=== PATIENT | female | born 1955 | race Caucasian/White ===

== ENCOUNTER → 2017-08-31 | Outpatient (CLI) | payer BC ==
[~2017-08-31] MED LIST: BUDESUS; CETI5TAB5 PO; CLON0.5T3 PO; FRC PO; TRAM-10 PO
--- NOTE | 2017-08-31 15:47 | MAMMOGRAPHY REPORT ---
BILATERAL DIGITAL SCREENING MAMMOGRAM TOMOSYNTHESIS WITH CAD: 08/31/2017 CLINICAL HISTORY: Routine screening. Patient has no complaints. TECHNIQUE: Breast tomosynthesis in addition to standard 2D mammography was performed. Current study was also evaluated with a Computer Aided Detection (CAD) system. COMPARISON: Comparison is made to exams dated: 08/30/2016 mammogram, 08/27/2015 mammogram, 08/26/2014 mammogram, 08/23/2013 mammogram, 08/22/2012 mammogram, and 08/20/2011 mammogram - [facility]. BREAST COMPOSITION: The tissue of both breasts is almost entirely fatty. FINDINGS: No suspicious masses, calcifications, or areas of architectural distortion are noted in ei ther breast. There has been no significant interval change compared to prior exams. IMPRESSION: ACR BI-RADS CATEGORY 1: NEGATIVE There is no mammographic evidence of malignancy. A 1 year screening mammogram is recommended. The pa tient will receive written notification of the results. Approximately 10% of breast cancers are not detected with mammography. A negative mammographic report should not delay biopsy if a clinically suggestive mass is present. Mindy Landis M.D. ah/:08/31/2017 13:40:04 Geotechnical Field Technician: Juanita ROJAS)(M), [facility] letter sent: Normal 1/2 BI-RADS Code: ACR BI-RADS Category 1: Negative
== END | disposition home or self-care (01) ==
LOC: C.MAMM 10:29
PROVIDERS: ATTEND Obstetrics & Gynecology
DX: Z12.31 Encounter for screening mammogram for malignant neoplasm of breast (principal)

== ENCOUNTER 2023-07-18 08:37 | Observation (INO) ==
--- NOTE | 2023-06-23 19:47 | PAT Medication Instructions ---
Medication Instructions Date of Service June 23, 2023 Home Medications Medication Instructions Recorded dupilumab 300 mg/2 mL subcutaneous 300 mg (2 mL) subcut .every 2 03/07/23 syringe (Dupixent) weeks #4 mL ibuprofen 600 mg tablet 600 mg PO TID PRN pain #90 tabs 04/26/23 zfflsfmtrg-zpvkmtzbnanll-qezrefbj 2 tab PO TID PRN pain #180 tabs 05/04/23 50 mg-325 mg-40 mg tablet tramadol 50 mg tablet 100 mg PO Q8H PRN pain #540 tabs 05/04/23 zolpidem 12.5 mg tablet,extended 12.5 mg PO HS #90 tabs 05/04/23 release,multiphase (Ambien CR) Wheeled Walker #1 ea 06/23/23 cetirizine 10 mg tablet 10 mg PO QAM cholecalciferol (vitamin D3) 50 mcg (2,000 unit) capsule 50 mcg PO QPM coenzyme Q10 200 mg capsule (Co Q-10) 200 mg PO QPM resveratrol 100 mg capsule 800 mg PO QPM budesonide compund 1 dose intranasal QAM dupilumab 300 mg/2 mL subcutaneous syringe (Dupixent) 300 mg (2 mL) subcut .every 2 weeks ibuprofen 600 mg tablet 600 mg PO TID PRN pain zwhrmmceia-oxeynjaqpgxar-umtmasvp 50 mg-325 mg-40 mg tablet 2 tab PO TID PRN pain tramadol 50 mg tablet 100 mg PO Q8H PRN pain zolpidem 12.5 mg tablet,extended release,multiphase (Ambien CR) 12.5 mg PO HS atorvastatin 10 mg tablet 10 mg PO QPM levothyroxine 75 mcg tablet 75 mcg PO QAM metformin 500 mg tablet 500 mg PO QPM nadolol 40 mg tablet 40 mg PO QPM ASK your surgeon for instructions ibuprofen 600 mg tablet 600 mg PO TID PRN pain ASK your prescriber and surgeon dupilumab 300 mg/2 mL subcutaneous syringe (Dupixent) 300 mg (2 mL) subcut .every 2 weeks STOP taking 2 weeks before surgery coenzyme Q10 200 mg capsule (Co Q-10) 200 mg PO QPM resveratrol 100 mg capsule 800 mg PO QPM DO NOT take the morning of surgery cetirizine 10 mg tablet 10 mg PO QAM chbdmxiopl-vqjzebgixvaah-dfykbhyz 50 mg-325 mg-40 mg tablet 2 tab PO TID PRN jacobo n Take morning of surgery With a small sip of water, OTHERWISE NOTHING TO EAT OR DRINK AFTER MIDNIGHT: budesonide compund 1 dose intranasal QAM tramadol 50 mg tablet 100 mg PO Q8H PRN pain (if needed) levothyroxine 75 mcg tablet 75 mcg PO QAM Take evening before surgery cholecalciferol (vitamin D3) 50 mcg (2,000 unit) capsule 50 mcg PO QPM dccqizofzz-kpybhjzzfifnz-juvhvslc 50 mg-325 mg-40 mg tablet 2 tab PO TID PRN pain (if needed) tramadol 50 mg tablet 100 mg PO Q8H PRN pain (if needed) zolpidem 12.5 mg tablet,extended release,multiphase (Ambien CR) 12.5 mg PO HS atorvastatin 10 mg tablet 10 mg PO QPM metformin 500 mg tablet 500 mg PO QPM nadolol 40 mg tablet 40 mg PO QPM Other Notes If you have any questions please call us at [phone] or [phone] or [phone] or [phone]
--- NOTE | 2023-06-27 09:37 | Anesthesiology Consultation ---
Date of Service June 27, 2023 Assessment & Plan (1) Encounter for pre-operative examination: - Check BSG AM DOS - COVID screening: Per assessment on 06/27: No known COVID-19 positive contacts or current COVID-19 related symptoms. No recent Covid positive test result. - Outpatient joint assessment: Pt currently scheduled for inpatient pathway. If surgeon requests review for outpatient joint pathway, patient is an acceptable candidate for outpatient joint program from anesthesia standpoint pending surgeon's office assessment that patient is motivated, has good support and completes [facility] Program preop requirements. - PONV: Hx severe PONV requiring return to ER for IV management after discharged home. Subsequently had surgery/anesthesia with pre-treatment including scope patch. Will order scope patch for DOS. - Anesthesia concern: Per patient, had awareness/pain towards end of colonoscopy. Concerned with similar issues for upcoming Left TKA. Requests deeper sedation perioperatively if possible* Chart Review Chart Review: Acceptable Risk for Surgery and Patient seen in Pre Admission Testing Teaching & Discussion Pre-Anesthesia Teaching/Discussion Notes: Instructed NPO after midnight before surgery,except medications with 15 cc of water. Medication instructions provided according to the PAT guidelines. History Surgery Operation Date: 07/18/23 08:50 Proposed Procedures p Left Total Knee Arthroplasty - Isiah Mccoy MD Height/Weight Height: 5 ft 4 in Weight: 76.9 kg Allergies Allergy/AdvReac Type Severity Reaction Status Date / Time Sulfa (Sulfonamide Allergy Intermediate Rash, Verified 06/24/23 09:29 Antibiotics) swelling, hives sulfamethoxazole Allergy Rash, Verified 06/27/23 09:56 [From Bactrim] swelling, hives trimethoprim [From Bactrim] Allergy Rash, Verified 06/27/23 09:56 swelling, hives Medications Home Medications Medication Instructions Recorded Confirmed Last Taken cetirizine 10 mg tablet 10 mg PO QAM #30 tabs 11/02/22 06/23/23 Unknown cholecalciferol (vitamin D3) 50 50 mcg PO QPM 11/02/22 06/23/23 Unknown mcg (2,000 unit) capsule coenzyme Q10 200 mg capsule (Co 200 mg PO QPM 11/02/22 06/23/23 Unknown Q-10) resveratrol 100 mg capsule 800 mg PO QPM 11/02/22 06/23/23 Unknown budesonide compund 1 dose intranasal QAM 03/03/23 06/23/23 Unknown dupilumab 300 mg/2 mL subcutaneous 300 mg (2 mL) subcut .every 2 03/07/23 06/23/23 Unknown syringe (Dupixent) weeks #4 mL ibuprofen 600 mg tablet 600 mg PO TID PRN pain #90 tabs 04/26/23 06/23/23 Unknown bclajlhtyr-uwnkfuqrkqeyk-txhpbmnk 2 tab PO TID PRN pain #180 tabs 05/04/23 06/23/23 Unknown 50 mg-325 mg-40 mg tablet tramadol 50 mg tablet 100 mg PO Q8H PRN pain #540 tabs 05/04/23 06/23/23 Unknown zolpidem 12.5 mg tablet,extended 12.5 mg PO HS #90 tabs 05/04/23 06/23/23 Unknown release,multiphase (Arnel CAMARENA) Wheeled Walker #1 ea 06/23/23 06/23/23 Unknown atorvastatin 10 mg tablet 10 mg PO QPM 06/23/23 06/23/23 Unknown levothyroxine 75 mcg tablet 75 mcg PO QAM 06/23/23 06/23/23 Unknown metformin 500 mg tablet 500 mg PO QPM 06/23/23 06/23/23 Unknown nadolol 40 mg tablet 40 mg PO QPM 06/23/23 06/23/23 Unknown Past Medical History Medical History Asthma Chronic rhinitis Chronic rhinosinusitis with nasal polyposis Follows with [facility] allergy Chronic sinusitis Degenerative arthritis of knee, bilateral Depression with anxiety GERD (gastroesophageal reflux disease) diet controlled History of migraine Hypercholesterolemia Hypothyroidism Impaired fasting glucose Nasal septal deviation Osteoarthritis Exercise / Class Metabolic Activity II 4-5 Yardwork/Stairs/Walk up hill (one FS (no CP, no SOB)) Past Family History Family History Grandmother (Maternal) Migraine Mother Migraine Myocardial infarction Heart disease Diabetes Hypertension Kidney disease Father Diabetes Heart disease Hypertension Myocardial infarction Arthritis Aunt Breast cancer Denies family history of Ovarian cancer Colorectal cancer Past Surgical History Surgical History H/O nasal polypectomy History of bilateral inguinal hernia repair History of colonoscopy History of tonsillectomy PONV (postoperative nausea and vomiting) Status post hysteroscopy with polypectomy Past Anesthesia History No Family Hx of Anesthesia Complications and Other (Awareness/pain towards end of colonoscopy) History of PONV No Hx of Motion Sickness and History of PONV (with sinus surgery- needed to return to ER for IV medical management, subsequently had pretreatment including scope patch with no PONV) Social History Smoking Status: Never smoker Do You Dip or Chew Tobacco: No Hx Alcohol Use: No Hx Substance Use: No substance use type: does not use Review of Systems Patient denies chest pain, shortness of breath, dyspnea on exertion, fever, chills, cough, wheezing, palpitations. Physical Exam Vital Signs VITALS BP 125/85 P 70 TEMP 98.1 SP02 98%RA RESP 16 PHYSICAL Full cervical extension range of motion. Full TMJ range of motion. TMD 3 finger breaths Mallampati Score 1 Dentition: intact, + crown (side) Lungs: clear throughout to auscultation Cardiac: regular rate and rhythm, no murmurs noted Spine: normal Carotid arteries: negative bruit Extremities: no LE edema Lab Results Anesthesia Preop Results Results Anesthesia Widget: WBC 5.33 K/ul (4.8-10.8) 06/27/23 Hgb 14.6 g/dl (12.0-16.0) 06/27/23 Hct 41.2 % (37.0-47.0) 06/27/23 Plt 298 K/uL (130-400) 06/27/23 Na 136 mmol/L (136-145) 06/27/23 K 4.2 mmol/L (3.5-5.1) 06/27/23 Cl 102 mmol/L (98-107) 06/27/23 CO2 29 mmol/L (21-32) 06/27/23 BUN 10 mg/dl (6-23) 06/27/23 Creat 0.69 mg/dl (0.6-1.2) 06/27/23 Glucose Level 90 mg/dl (70-99(Fasting)) 06/27/23 PT 10.7 Seconds (9.0-12.0) 06/27/23 PTT 28.6 Seconds (21.0-31.0) 06/27/23 INR 1.0 (0.9-1.1) 06/27/23 HA1c 5.5 % (4.5-5.6) 06/27/23 Blood Type O Negative 06/27/23 Antibody Screen NEGATIVE 06/27/23 Testing Electrocardiogram Date: 06/27/23 NSR at 68bpm. NS TWA. Chest X-Ray Date: 06/27/23 FINDINGS: PA and lateral chest radiographs are compared to study dated 04/21/2011. The cardiomediastinal silhouette is unremarkable. The lungs and pleural spaces are clear. There is no pneumothorax. The bony thorax appears intact. IMPRESSION: No active disease in the chest.
[~2023-07-18 08:37] MED LIST changes: +ACETAMINOPHEN 500 MG TAB PO SCH; -BUDESUS; +BUPIVACAINE 0.5 % 5 MG/1 ML PF 10ML VIAL ONE; +BUPIVACAINE LIPOSOME/PF 266 MG, BUPIVACAINE/EPINEPHRINE 50 ML, SODIUM CHLORIDE 0.9% PF ... INFIL SCH; -CETI5TAB5 PO; -CLON0.5T3 PO; +CeleBREX 200 MG CAP PO SCH; +EPINEPHrine INJ 1 MG/ML AMP ONE; +FAMOTIDINE 20 MG TAB PO SCH; -FRC PO; +LR 500ML BOLUS, THEN 15ML/HR IV SCH; +LR 60ML/HR IV SCH; +METOCLOPRAMIDE HCL 10 MG TABLET PO SCH; +ROPIVACAINE 0.5% 5 MG/ML 30 ML VIAL ONE; +Scopolamine 1 MG TDSY TD SCH; -TRAM-10 PO; +TRANEXAMIC ACID 1,000 MG **IV Intra-op IV SCH; +ceFAZolin 2000MG 2,000 MG/15 ML SYR IV SCH; +dexAMETHasone**PF** 10 MG/ML VIAL IV SCH
[2023-07-18] MEDS ORDERED: MIDAZOLAM HCL 1 MG/ML 2ML VIAL ONE (09:04)
[2023-07-18] MEDS ORDERED: PROPOFOL IV EMULSION 10 MG/ML 20 ML VIAL IV ONE (09:04)
[2023-07-18] MEDS ORDERED: fentaNYL citrate PF 100 MCG/2 ML VIAL ONE (09:04)
[2023-07-18] MEDS ORDERED: BUPIVACAINE/EPINEPHRINE 0.25% 1:200,000 30 ML VIAL ONE (10:36)
[2023-07-18] MEDS ORDERED: BUPIVACAINE LIPOSOME 1.3% 266 MG/20 ML VIAL ONE (10:37)
[2023-07-18] MEDS ORDERED: SODIUM CHLORIDE 0.9% PF 50 ML VIAL ONE (10:37)
--- NOTE | 2023-07-18 10:45 | History & Physical Bridge Note ---
Date of Service July 18, 2023 History & Physical Bridge Note I have examined the patient, reviewed the History & Physical and in the interval since the performance of the History & Physical I have noted the following changes of clinical significance: no changes noted
[2023-07-18] MEDS ORDERED: ONDANSETRON INJ 2 MG/ML 2 ML VIAL ONE (11:04)
[2023-07-18] MEDS ORDERED: ePHEDrine sulfate 50 MG/ML AMP IV PRN (11:09)
[2023-07-18] MEDS ORDERED: ATROPINE SULFATE 0.1 MG/ML 10ML SYR IV PRN (11:09)
--- NOTE | 2023-07-18 12:36 | Operative Report ---
PG Post Operative Report Pre & Post Diagnosis Operation Date: 07/18/23 10:20 Pre-Op Diagnosis: Left Knee Degenerative Joint Disease Post-Op Diagnosis: Left Knee Degenerative Joint Disease I identified the patient and participated in the time-out.: Yes Procedure Operation Date: 07/18/23 10:20 Actual Procedures p Left Total Knee Arthroplasty(Left) - Isiah Mccoy MD Surgeon Isiah Mccoy MD Technology Advisor Xu Henson PA-C Estimated Blood Loss 50 Findings Consistent with Post-Op Diagnosis Operative findings were advanced left knee tricompartment DJD. She had extensive grade 4 xvzl-du-fatp disease and eburnation of the anteromedial compartment. Less severe but diffuse grade 4 changes in the patellofemoral and focal changes in the lateral compartment. Moderate-sized joint effusion. Specimens Left knee sent for pathology Drains None Anesthesia Type Spinal MAC Disposition Accompanied Patient To Recovery: No Indications Patient is a 68-year-old female is had a several year history of increasing left knee pain discomfort describes gotten worse over time. She failed conservative measures. X-rays show advanced left knee arthritis. She elected proceed with total knee arthroplasty. Description of Procedure Operative implants consist of: 1. Biomet Vanguard size 62.5 left posterior stabilized femoral component. 2. Biomet size 67 tibial tray. 3. 12 mm posterior stabilized polyethylene insert. 4. 25 x 8 all poly patella. The patient was taken the operating, identified, and placed on the operating table supine position but all contractors were appropriately padded. IV antibiotics tried by anesthesia team. A spinal anesthetic and abductor canal block had provided in the holding area. A Avina catheter was placed in sterile fashion. A left thigh tent was then placed in the left lower extremities and prepped and draped in usual sterile fashion. The left leg was elevated exsanguinated with use of an Esmarch and the tourniquet was placed at 300 mmHg. An anterior approach left knee was then performed to longitudinal incision centered over the patella. Sharp dissection was carried through subcutaneous tissue down the extensor mechanism. A medial parapatellar arthrotomy was then performed. Some subperiosteal dissection was carried out medially. The fat pad was resected from Neath patella tendon. Late ral patellofemoral ligament was released. Patella subluxated laterally and the knee was flexed. The osteophytes taken on distal femur. The ACL and PCL were then released from distal femur and the tibia subluxated anteriorly. The external tibial alignment jig was then placed in the interface the tibia and adjusted 14 mm medially. Proximal tibial cut was made remove about 2 mm of bone from most deficient aspect medial tibial plateau. Tibia was then sized to a size 67. Attention drawn the femur. The distal femur was entered with a sharp drill. Intramedullary canal was suction. A left 5 degree valgus cutting guide was placed. The distal femoral cutting block was pinned in place. Distal femoral cut was made to take an additional 3 mm of bone off distal femur. The femur was then sized to a size 62.5. The AP cutting block was pinned parallel to the epicondylar axis which was 5 degrees of external rotation. The anterior cut, anterior chamfer, posterior cut, posterior chamfer cuts were made. The box cutting guide was placed in just slight lateral and the box cut was made. The knee was flexed. The remnants of the medial and lateral menisci were excised the osteophytes taken off the posterior aspect of femur. A trial femoral component was placed. The tibial tray was pinned in maximum external rotation and the drill and stem punch were used to create defect in proximal tibia for the tibial tray. The knee was then trialed and the 12 mm insert fit most appropriately. Attention drawn the patella. The patella was cleaned of all soft tissues. Patella thickness measured 18 mm in thickness and was cut down to 12. Was sized to a size 25 patella. The lug holes were drilled for the 25 patella. The lateral osteophyte was removed. Patella button was placed. Knee was taken through range of motion and the patella tracked nicely with no thumbs test. Attention drawn to placing the permanent components. All trial components were removed. Bone plug was placed in the distal femur limit blood loss. A double batch Palacos G cement was mixed. Biomet Vanguard size 62.5 left posterior stabilized femoral component, size 67 tibial tray, a 12 mm posterior stabilized polyethylene insert, and a 25 x 8 all Paller patella then cemented in place. Knee was brought out into full extension till cement hardened. Final cement check was then performed. Pericapsular tissues were injected with a total of 100 cc of combination of 20 cc of Exparel, 30 cc normal saline, 50 cc of quarter percent Marcaine with epinephrine. Patient did receive 1 g tranexamic acid. The tourniquet was then let down for final tourniquet time 52 minutes. Hemostasis assured use electrocautery. Extensor mechanism then closed with combination 1 PDS suture #1 Vicryl suture in a jfjsvr-gl-bdqrl fashion. Extensor mechanism checked found to be intact and the subcutaneous tissue then closed with 2 Dexon suture in a buried interrupted fashion skin was closed with skin ted. Leg was then cleaned and dried and sterile dressing applied Xeroform, 4 fours, sterile cast padding, Nate bandage were applied. Patient then transferred to the recovery room in stable condition. Patient tolerated procedure well and there were no complications. Xu Henson, my physician property management assistant, was present for the entire procedure. His assistance was essential and required for appropriate patient positioning, prepping and draping, surgical exposure, performing the technical details of the operation, placement the implants, closure of the wound, and placement of the sterile bandage. I attest to the content of the Intraoperative Record and any orders documented therein. Any exceptions are noted below.
[2023-07-18] MEDS ORDERED: GLUCAGON FOR INJ 1 MG VIAL SQ PRN (12:37)
[2023-07-18] MEDS ORDERED: CARBOHYDRATES FOR HYPOGLYCEMIA PO PRN (12:37)
[2023-07-18] MEDS ORDERED: DEXTROSE 50% 50 ML SYRINGE IV PRN (12:37)
[2023-07-18] MEDS ORDERED: GLUCOSE 10 TAB/TUBE PO PRN (12:37)
[2023-07-18] MEDS ORDERED: GLUCOSE 40% GEL 15 GM TUBE PO PRN (12:37)
--- NOTE | 2023-07-18 13:09 | Anesthesiology Progress Note ---
Date of Service July 18, 2023 Anesthesia Post Procedure Vital Signs Vital Signs: Temp Pulse Pulse Resp BP Pulse Ox O2 Del Method 07/18/23 13:00 36.5 C 85 17 127/82 96 Room Air 07/18/23 12:50 77 16 119/70 98 Room Air 07/18/23 12:40 79 19 121/76 96 Room Air 07/18/23 12:31 36.5 C 79 14 126/77 95 Room Air 07/18/23 09:04 36.8 C 70 20 164/91 H 95 Room Air Pain Intensity Left Knee: Pain Intensity: 6 Transfer of Care Handoff Completed per policy Notes Mental Status: alert / awake / arousable Patient Amnestic to Procedure: Yes Nausea / Vomiting: adequately controlled Pain: adequately controlled Airway Patency, RR, SpO2: stable & adequate BP & HR: stable & adequate Hydration State: stable & adequate Neuraxial Anesthesia: was administered and sensory block is resolving Anesthetic Complications: no major complications apparent
--- NOTE | 2023-07-18 13:19 | XRay Report ---
XR knee LT 1 or 2V routine CLINICAL HISTORY: Surgical Post Op TECHNIQUE: 2 views of the left knee were obtained. Comparison: Comparison is made to knee radiographs 02/08/2013 FINDINGS: Patient is status post total knee arthroplasty with expected postsurgical changes including soft tiss ue swelling and subcutaneous emphysema. No periarticular lucency or hardware fracture is seen. IMPRESSION: Expected postoperative appearance status post placement of total knee arthroplasty. ACT 112: Negative or not required by law. Electronically signed by: Avery Chau M.D. 07/18/2023 1:18 PM
[2023-07-18] MEDS ORDERED: METOCLOPRAMIDE HCL INJ 5 MG/ML 2 ML VIAL IV PRN (14:12)
[2023-07-18] MEDS ORDERED: ALUMINUM/MAGNESIUM SUSP 30 ML UDC PO PRN (14:12)
[2023-07-18] MEDS ORDERED: DUPILUMAB 300 MG/2 ML SQ SCH (14:12)
[2023-07-18] MEDS ORDERED: MAGNESIUM HYDROXIDE SUSP 30 ML UDC PO PRN (14:12)
[2023-07-18] MEDS ORDERED: NALOXONE HCL 0.4 MG/1 ML VIAL/CARP IV PRN (14:12)
[2023-07-18] MEDS ORDERED: BUTALBITAL/ACETAMIN/CAFFEINE TAB PO PRN (14:12)
[2023-07-18] MEDS ORDERED: ONDANSETRON INJ 2 MG/ML 2 ML VIAL IV PRN (14:12)
[2023-07-18] MEDS ORDERED: bisacodyL 10 MG SUPP PR PRN (14:12)
[2023-07-18] MEDS ORDERED: HYDROmorphone INJ 0.5 MG/0.5 ML SYR IV PRN (14:12)
[2023-07-18] MEDS: SODIUM CHLORIDE 0.9% 1000ML 1,000 ML IV SCH (14:36)
[2023-07-18] MEDS: ACETAMINOPHEN 500 MG TAB PO SCH ×2 (14:36→20:02)
[2023-07-18] MEDS: oxyCODONE HCL IR 5 MG TAB (IMMEDIATE RELEASE) PO PRN ×2 (16:12→22:11)
[2023-07-18] MEDS: Scopolamine CHECK PATCH PLACEMENT SCH ×2 (16:14→22:12)
[2023-07-18] MEDS: ceFAZolin 1000MG 1,000 MG/7.5 ML SYR IV SCH (18:12)
[2023-07-18] MEDS ORDERED: TRANEXAMIC ACID / 0.7% NACL 1,000 MG/100 ML BAG IV SCH (18:30)
[2023-07-18] MEDS: ASPIRIN 81 MG ECTAB PO SCH (20:02)
[2023-07-18] MEDS: DOCUSATE SODIUM 100 MG CAP PO SCH (20:03)
[2023-07-18] MEDS: KETOROLAC TROMETHAMINE 15 MG/ML VIAL IV SCH (20:04)
[2023-07-18] MEDS ORDERED: ATORVASTATIN 10 MG TAB PO SCH (21:00)
[2023-07-18] MEDS ORDERED: ZOLPIDEM TARTRATE 10 MG TAB PO SCH (21:00)
[2023-07-18] MEDS ORDERED: nadoloL 40 MG TAB PO SCH (21:00)
[2023-07-18] MEDS ORDERED: CHOLECALCIFEROL 1,000 UNITS 25 MCG TAB PO SCH (21:00)
[2023-07-18] MEDS ORDERED: SENNA 8.6 MG TAB PO SCH ×2 (21:00)
[2023-07-18] MEDS ORDERED: NON-FORMULARY MEDICATION (Coenzyme Q10 [Co Q-10] 200 mg capsule) PO SCH (21:00)
[2023-07-19] MEDS: SODIUM CHLORIDE 0.9% 1000ML 1,000 ML IV SCH (02:35)
[2023-07-19] MEDS: ceFAZolin 1000MG 1,000 MG/7.5 ML SYR IV SCH (03:12)
[2023-07-19] MEDS: KETOROLAC TROMETHAMINE 15 MG/ML VIAL IV SCH ×2 (03:12→08:09)
[2023-07-19] MEDS: oxyCODONE HCL IR 5 MG TAB (IMMEDIATE RELEASE) PO PRN ×2 (06:35→12:41)
[2023-07-19 07:30] VITALS: BP 119/71; PULSE 74; TEMP 98.1; O2SAT 93
[2023-07-19] MEDS ORDERED: dexAMETHasone 10 MG in SYRINGE 0 ML IV SCH (08:00)
[2023-07-19] MEDS: ASPIRIN 81 MG ECTAB PO SCH (08:09)
[2023-07-19] MEDS: ACETAMINOPHEN 500 MG TAB PO SCH (08:09)
[2023-07-19] MEDS: DOCUSATE SODIUM 100 MG CAP PO SCH (08:09)
[2023-07-19] MEDS: Scopolamine CHECK PATCH PLACEMENT SCH (08:10)
[2023-07-19 08:26] LABS: Hematocrit (blood only) 33.6 % (37.0-47.0); Mean Corpuscular Hemoglobin 32.8 pg (25.0-34.0); Mean Corpuscular Hgb Conc 35.7 g/dL (32.0-36.0); Mean Corpuscular Volume 91.8 fL (80.0-100.0); Mean Platelet Volume 10.5 fL (9.4-12.4); Platelet Count 223 K/uL (130-400); RDW Coefficient of Variation 12.6 % (11.5-14.5); RDW Standard Deviation 42.2 fL (36.4-46.3); Red Blood Count 3.66 M/uL (4.20-5.40); White Blood Count 10.09 K/ul (4.8-10.8)
[2023-07-19 08:41] LABS: BUN Creatinine Ratio 13.3 (10-20); Calcium 8.7 mg/dl (8.6-10.3); Creatinine Clr Calc Pharmacy 91.6 ml/min; Est GFR (African American) 110.1 ml/min; Potassium 3.5 mmol/L (3.5-5.1)
[2023-07-19] MEDS ORDERED: MULTIVITAMIN TAB PO SCH (09:00)
[2023-07-19] MEDS ORDERED: CETIRIZINE HCL 10 MG TABLET PO SCH (09:00)
[2023-07-19] MEDS ORDERED: LEVOTHYROXINE SODIUM 75 MCG TABLET PO SCH (09:00)
[2023-07-19] MEDS ORDERED: [UNRECOGNIZED DRUG - OTHER] intranasal SCH (09:00)
--- NOTE | 2023-07-19 15:18 | Orthopedic Progress Note ---
Date of Service July 19, 2023 Assessment & Plan (1) Status post left knee replacement: 68-year-old female postop day 1 from left knee replacement and doing well. Pain is controlled. She is neurologically intact. Plan: 1. DVT prophylaxis including thigh-high teds, SCDs, aspirin twice a day. 2. Pain control doing well with current pain regimen. 3. PT OT. Weight-bear as tolerated. Left total knee protocol. 4. Disposition plan to discharge to home with some home health later today. Subjective . 68-year-old female postop day 1 from left knee replacement. She is doing pretty well. Some moderate pain but controlled. No chest pain or shortness of breath. Not feeling dizzy or lightheaded. Review of Systems All systems reviewed & are unremarkable except as noted in HPI & below. Physical Exam . Physical examination was a pleasant middle-age female. Sitting up in her bed talking to her family looks quite comfortable. Examination left leg reveals dressing clean dry and intact. She can dorsiflex and plantarflex her foot appropriately. She is neurologically intact. Respiratory normal respiratory effort, lungs clear to auscultation Cardiovascular RRR, no murmur, no edema Gastrointestinal (Abdomen) normal bowel sounds, soft, nontender, no hepatosplenomegaly Results & Data Results & Data Laboratory Results . Hemoglobin is 12.0. Mackert 33.6. Electrolytes are stable. Diagnostic Findings . PG Care Time/CCT Total # of Minutes Spent Total Time Spent with Patient: Total time spent is greater than 50% in coordination of care (as documented) at patient's floor/unit and/or counseling patient: Coding Level of Care Code 99015 Post Operative Follow-Up Diagnoses Status post left knee replacement Z96.652
== END 2023-07-19 13:37 | disposition home health service (06) ==
LOC: ASU 08:37 → 3W 08:37